=== PATIENT | female | born 1990 | race African-American/Black ===

== ENCOUNTER 2017-07-10 18:30 | Observation (INO) | payer BC ==
[~2017-07-10] VITALS: Ht 165.1 cm; Wt 77.7 kg
[2017-07-10 19:06] LABS: HEMATOCRIT 34.4 % (36.0-46.0); HEMOGLOBIN 11.9 G/DL (11.9-15.5); MCH 32.1 PG (29.0-34.0); MCHC 34.6 G/DL (30.0-36.0); MCV 92.7 FL (83-99); PLATELET COUNT 137 K/uL (156-360); RBC DIS.WIDTH-CV 12.3 % (11.8-14.6); RBC DIS.WIDTH-SD 42.1 % (39-53); RED BLOOD COUNT 3.71 M/uL (3.80-5.20); WHITE BLOOD COUNT 9.2 K/uL (4.1-10.2)
[2017-07-10 19:34] LABS: ALBUMIN 3.9 g/dL (3.2-4.8); CHLORIDE 104 mEq/L (99-109); POTASSIUM 3.6 mEq/L (3.7-5.4); SODIUM 137 mEq/L (136-147)
[2017-07-10 19:36] LABS: GLUCOSE 92 mg/dL (70-99)
[2017-07-10 19:37] LABS: TOTAL PROTEIN 7.2 g/dL (6.4-8.3)
[2017-07-10 19:38] LABS: TOTAL BILIRUBIN 0.3 mg/dL (0.0-1.0)
[2017-07-10 19:40] LABS: ALKALINE PHOSPHATASE 60 IU/L (3-129); CREATININE 0.7 mg/dL (0.6-1.3)
[2017-07-10 19:41] LABS: UREA NITROGEN (BUN) 6 mg/dL (9-23)
[2017-07-10 19:42] LABS: AST (GOT) 24 IU/L (2-34)
[2017-07-10 19:43] LABS: ALT (GPT) 17 IU/L (3-49); LIPASE 9 U/L (1.0-51.0)
[2017-07-10 19:44] LABS: GFR ESTIMATE (CALCULATED) > 59 mL/min/
[2017-07-10 20:58] LABS: APPEARANCE SL.HAZY ((CLEAR)); BILIRUBIN NEGATIVE; BLOOD MODERATE; COLOR YELLOW ((YELLOW)); GLUCOSE (STRIP) NEGATIVE; KETONES NEGATIVE; LEUKOCYTES NEGATIVE; NITRITE NEGATIVE; PROTEIN (STRIP) NEGATIVE; SPECIFIC GRAVITY 1.023 (1.000-1.030); UROBILINOGEN 0.2 MG/DL (0.2-1.0)
[2017-07-10 21:16] LABS: BACTERIA NONE SEEN /HPF; EPITHELIAL CELLS RARE /HPF; MUCUS 1+ /LPF; UCUL ADDED? NO; WHITE BLOOD CELLS 0-5 /HPF (0-5)
[2017-07-10] MEDS ORDERED: IBUPROFEN800 MG PO (23:37)
[2017-07-10] MEDS ORDERED: ENDOCET 5-3251 EACH PO (23:37)
[2017-07-10] MEDS ORDERED: DOXYCYCLINE HY100 MG PO (23:37)
[2017-07-11] VITALS (7 sets, daily range): BP systolic 85–115; BP diastolic 52–68
[2017-07-11 06:16] LABS: HEMATOCRIT 30.3 % (36.0-46.0); HEMOGLOBIN 10.2 G/DL (11.9-15.5); MCH 30.7 PG (29.0-34.0); MCHC 33.7 G/DL (30.0-36.0); MCV 91.3 FL (83-99); PLATELET COUNT 112 K/uL (156-360); RBC DIS.WIDTH-CV 12.3 % (11.8-14.6); RBC DIS.WIDTH-SD 41.2 % (39-53); RED BLOOD COUNT 3.32 M/uL (3.80-5.20); WHITE BLOOD COUNT 10.3 K/uL (4.1-10.2)
[2017-07-11 06:46] LABS: ABS NEUTROPHIL COUNT 9.7; BAND NEUTROPHILS 24.3 % (0-8.0); EOSINOPHIL ABS CT 0; LYMPHOCYTES 0.9 % (15.0-45.0); MONOCYTES 5.2 % (0-9.0); PLAT.SUFFICIENCY DECREASED; SEG.NEUTROPHILS 69.6 % (46.0-76.0)
[2017-07-11] MEDS ORDERED: BP WASH TP (13:29)
[2017-07-11] MEDS ORDERED: CLINDAGEL40 ML TP (13:31)
[2017-07-11] MEDS ORDERED: ASCORBIC ACID100 MG PO (13:32)
[2017-07-12 03:32] VITALS: BP 100/61
[2017-07-12 07:15] VITALS: BP 95/60
[2017-07-12 07:30] LABS: HEMATOCRIT 26.4 % (36.0-46.0); HEMOGLOBIN 8.8 G/DL (11.9-15.5); MCHC 33.3 G/DL (30.0-36.0); PLATELET COUNT 91 K/uL (156-360); RBC DIS.WIDTH-SD 44.4 % (39-53); RED BLOOD COUNT 2.84 M/uL (3.80-5.20); WHITE BLOOD COUNT 6.1 K/uL (4.1-10.2)
[2017-07-12 08:02] LABS: ABS NEUTROPHIL COUNT 5.6; ANISOCYTOSIS 1+; BAND NEUTROPHILS 24.3 % (0-8.0); EOSINOPHIL ABS CT 0; HEMATOLOGY COMMENT 1 SN; LYMPHOCYTES 4.4 % (15.0-45.0); MONOCYTES 3.5 % (0-9.0); PLAT.SUFFICIENCY DECREASED; POLYCHROMASIA 1+; SEG.NEUTROPHILS 67.8 % (46.0-76.0); TOX.VACUOLIZATION 1+
[2017-07-12] MEDS ORDERED: IRON325 M1 PO (10:20)
[2017-07-12] MEDS ORDERED: AUGMENTIN875 MG PO (10:20)
[2017-07-12] MEDS ORDERED: MOTRIN800 MG PO (10:20)
[2017-07-12] MEDS ORDERED: PERCOCET 5/31 TABLET PO (10:20)
== END 2017-07-12 12:00 | disposition home or self-care (01) ==
LOC: EME 18:30 → 2EASTP 23:09 → EDOF 23:09 → ENRESERV 23:11 → EDOF 23:56 → 2EASTP 07-11 01:43
PROVIDERS: Obstetrics & Gynecology Gynecology; Obstetrics & Gynecology Obstetrics; Physician Assistant
PROC: 10D17ZZ Extraction of Products of Conception, Retained, Via Natural or Artificial Opening (ICD-10-PCS; principal; 2017-07-10)
DX: O03.39 Incomplete spontaneous abortion with other complications (principal); R50.9 Fever, unspecified; R78.81 Bacteremia; B95.1 Streptococcus, group B, as the cause of diseases classified elsewhere
CPT/HCPCS: 74177; 76801; 80053; 81003; 83605; 83690; 84702; 85025; 85027; 87040; 87077; 87186; 87651 90; 87801; 88305; 99281; 99285; G0378; J0131; J0290; J0330; J1050; J1100; J1580; J2210; J2405; J3010; J7030; J7050; J7120; S0074